=== PATIENT | male | born 1935 | race Caucasian/White ===

== ENCOUNTER 2022-12-26 19:58 | Outpatient (CLI) | payer MEDICARE, OTHER | END 2022-12-26 23:59 | disposition critical access hospital (66) | LOC: EMS 19:58 | DX: R53.1 Weakness (principal) | CPT/HCPCS: A0425; A0429 ==

== ENCOUNTER 2022-12-26 20:27 | Inpatient (IN) | payer MEDICARE, OTHER ==
--- NOTE | 2022-12-26 20:37 | ED Physician Documentation ---
History of Present Illness - Stated complaint Stated Complaint: FALL - Additonal information Additional information: 87-year-old male who has a past medical history most significant for diabetes, hypertension and glaucoma is brought to the emergency department for evaluation of generalized weakness. Fire medics were called out to the house for a lift assist. Reportedly the patient has been getting progressively weak for the last 2 days and could not walk. He thought that he may fall and he was gently assisted to the ground on the couch. He did not strike his head or lose consciousness. When EMS arrived he had a blood glucose of 324. Patient initially did not want transport to the hospital and therefore they tried to ambulate him into his bedroom but he could not stand or walk and thus he is transported here. Patient is alert very pleasant gentleman. History is somewhat limited due to significant hearing loss. He appears atraumatic with no initial worrisome vital sign abnormalities. non focal neuro exam Review of Systems Unable to obtain: Other (hard of hearing) Constitutional: reports: Reviewed and negative Cardiac: denies: Chest pain / pressure Respiratory: denies: Dyspnea GI: denies: Abdominal Pain : denies: Dysuria Skin: denies: Rash Musculoskeletal: denies: Neck pain Neurologic: reports: Generalized weakness. denies: Focal weakness, Numbness, Difficulty speaking, Near syncope, Syncope, Confused, Headache, Head injury, LOC PD PAST MEDICAL HISTORY - Allergies Allergies/Adverse Reactions: Allergies Allergy/AdvReac Type Severity Reaction Status Date / Time No Known Drug Allergies Allergy Verified 12/26/22 20:37 PD ED PE NORMAL - General General: Alert and oriented X 3, No acute distress, Well developed/nourished - HEENT HEENT: Atraumatic, Moist mucous membranes - Neck Neck: Supple, no meningeal sign, No adenopathy - Cardiac Cardiac: RRR - Respiratory Respiratory: No respiratory distress, Clear bilaterally - Abdomen Abdomen: Normal bowel sounds, Soft, Non tender - Derm Derm: Normal color, Warm and dry - Extremities Extremities: No deformity - Neuro Neuro: Alert and oriented X 3, education research analyst 2-12 intact Eye Opening: Spontaneous Motor: Obeys Commands Verbal: Oriented GCS Score: 15 Results - Vitals Vitals: Vital Signs - 24 hr 12/26/22 20:33 Temperature 36.3 C L Heart Rate 67 Respiratory 16 Rate Blood Pressure 136/70 H O2 Saturation 100 Oxygen O2 Source Room air - EKG (time done) 2051 EKG releavant findings:: EKG personally interpreted by author of this note. Relevant findings are: Rate: Rate (enter#) (68) Rhythm: NSR Ariel: Anterior hemiblock (LAFB) Intervals: Normal [place]. No: Prolonged QT QRS: Poor R wave progression Ischemia: Normal ST segments Compare to prior EKG: Old EKG unavailable Computer interpretation: Agree with computer - Labs Labs: Laboratory Tests 12/26/22 12/26/22 12/26/22 20:34 20:50 20:50 WBC 6.2 RBC 4.18 L Hgb 12.7 L Hct 39.7 L MCV 95.0 H MCH 30.4 MCHC 32.0 RDW 13.2 Plt Count 176 MPV 10.7 Neut # (Auto) 4.8 Lymph # (Auto) 0.6 L [place] # (Auto) 0.9 Eos # (Auto) 0.0 Baso # (Auto) 0.0 Absolute Nucleated RBC 0.00 Nucleated RBC % 0.0 Sodium 134 L Potassium 3.8 Chloride 104 Carbon Dioxide 19 L Anion Gap 11.0 BUN 36 H Creatinine 1.4 H Estimated GFR (MDRD) 48 L Glucose 336 H Calcium 8.6 Phosphorus 2.6 Magnesium 1.5 L Total Bilirubin 0.7 AST 27 ALT 17 Alkaline Phosphatase 71 Total Protein 6.8 Albumin 4.2 Globulin 2.6 Albumin/Globulin Ratio 1.6 Lipase 58 H Urine Color YELLOW Urine Clarity CLEAR Urine pH 5.0 Ur Specific [place] >=1.030 H Urine Protein TRACE Urine Glucose (UA) >=1000 H Urine Ketones 15 H Urine Occult Blood TRACE-INTA Urine Nitrite NEGATIVE Urine Bilirubin NEGATIVE Urine Urobilinogen 0.2 (NORMAL) Ur Leukocyte Esterase NEGATIVE Ur Microscopic Review NOT INDICATED Urine Culture Comments NOT INDICATED Serum Ketones SMALL H PD Medical Decision Making - ED course Complexity details: reviewed results, re-evaluated patient, considered differential, d/w patient, d/w family ED course: 87-year-old male who has past medical history most significant for hypertension, diabetes not on insulin and glaucoma presents emergency department for evaluation of generalized weakness which has been progressive over the last 2 days. He was reportedly at home and had been having increased difficulty walking when he was unable to stay standing he was assisted to the ground. There is no head strike or loss of consciousness. Presentation the emergency department he is alert and very well-appearing. Though EMS had documented he was unable to ambulate when left unattended the patient was able to get out of bed ambulate in the room and urinate in a urinal without any assistance. Subsequently we did obtain labs in the emergency department included CBC chemistry ketones and a UA. Urinalysis was without signs of infection. Hemoglobin showed no leukocytosis mild anemia with hemoglobin of 12.7. Serum chemistry showed a sodium of 134, BUN of 36 and a creatinine of 1.4. He did have small amount of serum ketones and a carbon dioxide of 19. Clinically he likely presents in mild DKA. I did administer 5 units of insulin IV as well as a liter of fluid. But given the age and the worsening weakness feel he would benefit from a short hospitalization for further management of his hyperglycemia and mild dka 2136: I have spoken with Dr. Carrera [facility] hospitalist who has evaluated the chart and will bring the patient in for further evaluation and management of his electrolyte derangement and mild DKA. I have also spoken on the phone with the patient's and informed her of the plan to admit. Patient verbally consents to further admission and management here at [facility]. Departure - Departure Disposition: 66 [facility] DC/Xfer Clinical Impression: Generalized weakness DKA (diabetic ketoacidosis) Qualifiers: Diabetes mellitus type: type 2 Diabetes mellitus complication detail: without coma Qualified Code(s): E11.10 - Type 2 diabetes mellitus with ketoacidosis without coma Condition: Stable
[2022-12-26 20:56] LABS: HCT - HEMATOCRIT 39.7 % (42.0-52.0); HGB - HEMOGLOBIN 12.7 g/dL (14.0-18.0); LYMPHOCYTES # (AUTO) 0.6 10^3/uL (1.5-3.5); LYMPHOCYTES % (AUTO) 8.8 %; MEAN CORPUSCULAR HEMOGLOBIN 30.4 pg (27.0-31.0); MEAN PLATELET VOLUME 10.7 fL (7.4-11.4); MONOCYTES # (AUTO) 0.9 10^3/uL (0.0-1.0); MONOCYTES % (AUTO) 14.3 %; NEUTROPHILS # (AUTO) 4.8 10^3/uL (1.5-6.6); NEUTROPHILS % (AUTO) 76.6 %; PLT - PLATELET COUNT 176 10^3/uL (130-450); RED BLOOD COUNT 4.18 10^6/uL (4.70-6.10); RED CELL DISTRIBUTION WIDTH 13.2 % (12.0-15.0); WHITE BLOOD COUNT 6.2 x10^3/uL (4.8-10.8)
[2022-12-26 21:11] LABS: BILIRUBIN,URINE NEGATIVE (NEGATIVE); GLUCOSE, URINE (UA) >=1000 mg/dL (NEGATIVE); KETONES,URINE (UA) 15 mg/dL (NEGATIVE); LEUKOCYTE ESTERASE, URINE NEGATIVE (NEGATIVE); NITRITE,URINE NEGATIVE (NEGATIVE); OCCULT BLOOD,URINE TRACE-INTA (NEGATIVE); PROTEIN,URINE TRACE mg/dL (NEGATIVE); UROBILINOGEN,URINE 0.2 (NORMAL) E.U./dL (NORMAL)
[2022-12-26 21:12] LABS: CLARITY,URINE CLEAR (CLEAR)
[2022-12-26 21:19] LABS: ALBUMIN 4.2 g/dL (3.2-5.5); ALBUMIN/GLOBULIN RATIO 1.6 (1.0-2.2); ALKALINE PHOSPHATASE 71 IU/L (42-121); ALT ALANINE AMINOTRANSFERASE 17 IU/L (10-60); AST ASPARTATE AMINOTRANSFERASE 27 IU/L (10-42); BILIRUBIN,TOTAL 0.7 mg/dL (0.2-1.0); BUN - BLOOD UREA NITROGEN 36 mg/dL (6-20); CALCIUM 8.6 mg/dL (8.5-10.3); CARBON DIOXIDE - CO2 19 mmol/L (21-32); CHLORIDE 104 mmol/L (101-111); CREATININE 1.4 mg/dL (0.6-1.2); GFR - MDRD 48 (>89); GLUCOSE 336 mg/dL (70-100); LIPASE 58 U/L (22-51); MAGNESIUM 1.5 mg/dL (1.7-2.8); PHOSPHORUS 2.6 mg/dL (2.5-4.6); POTASSIUM 3.8 mmol/L (3.5-5.0); SODIUM 134 mmol/L (135-145); TOTAL PROTEIN 6.8 g/dL (6.7-8.2)
[2022-12-26 21:20] LABS: KETONES, SERUM (ACETEST) SMALL (NEGATIVE)
[2022-12-26] MEDS ORDERED: SODIUM CHLORIDE 0.9% 1,000 ML IV STA (21:21)
[2022-12-26 21:26] LABS: VBG HCO3 19.6 mmol/L (23-28); VBG PCO2 41.9 mmHg (41-51); VBG PH 7.287 (7.31-7.41); VBG PO2 17.2 mmHg (25-47)
[2022-12-26 21:27] LABS: VBG BASE EXCESS -6.7 mmol/L (-2 - +2); VBG OXYGEN SATURATION 27.6 % (60-80); VBG TOTAL CO2 20.8 mmol/L (24-29)
[2022-12-26] MEDS ORDERED: INSULIN REGULAR HUMAN 300 UNIT/3 ML VIAL IVP STA (21:32)
[2022-12-26] MEDS ORDERED: AZITHROMYCIN INJ 500 MG in SODIUM CHLORIDE 0.9% 250 ML IV STA (21:40)
[2022-12-26] MEDS ORDERED: cefTRIAXone 1 GM VIAL IVP STA (21:40)
--- NOTE | 2022-12-26 22:01 | XRAY Report ---
PROCEDURE: Chest 1 View X-Ray INDICATIONS: chest pain TECHNIQUE: One view of the chest was acquired. COMPARISON: None. FINDINGS: Surgical changes and devices: None. Lungs and pleura: There are confluent airspace opacities redemonstrated within the lung bases sugges tive of consolidation. There is a suspected small right pleural effusion. No pneumothorax. Mediastinum: Mediastinal contours appear normal. Heart size is normal. Bones and chest wall: No suspicious bony lesions. Overlying soft tissues appear unremarkable. IMPRESSION: 1. Bibasilar confluent opacities are nonspecific but suggestive of pneumonia. 2. Suspected small right pleural effusion. Reviewed by: Alejandro Menezes MD on 12/26/2022 10:00 PM PDT Approved by: Alejandro Menezes MD on 12/26/2022 10:00 PM PDT Station ID: [id number]
--- NOTE | 2022-12-26 22:12 | HISTORY & PHYSICAL EXAMINATION ---
Chief Complaint - Chief Complaint Chief Complaint: Weakness and fall also uncontrolled blood sugar History of Present Illness - Admitted From Admitted From:: Home - History Obtained From Records Reviewed: Yes History obtained from: ER and Pateint and chart review Exam Limitations: Patient is very hard of hearing - History of Present Illness HPI Comment/Other: 87-year-old male who has a past medical history most significant for diabetes, hypertension and glaucoma is brought to the emergency department for evaluation of generalized weakness. Fire medics were called out to the house for a lift assist. Reportedly the patient has been getting progressively weak for the last 2 days and could not walk. He thought that he may fall and he was gently assisted to the ground on the couch. He did not strike his head or lose consciousness. When EMS arrived he had a blood glucose of 324. Patient initially did not want transport to the hospital and therefore they tried to ambulate him into his bedroom but he could not stand or walk and thus he is transported here. Patient is alert very pleasant gentleman. History is somewhat limited due to significant hearing loss. He appears atraumatic with no initial worrisome vital sign abnormalities. non focal neuro exam Patient seen and examined via televideo cart, was moaning but denies any active pain, his CXR shows right lower lobe pna and hence he ahs been started on empiric abx with first dose bieng in ER also has hx of HTN, glaucoma, mild dehydration and low Mg He takes metformin, lisinopril and finasteride and has 3 eye drops, purple cap, orange cap and one is cold with blue cap History - Past Medical History Cardiovascular: reports: Hypertension Respiratory: reports: Pneumonia HEENT: reports: Glaucoma Meds/Allgy - Allergies Allergies/Adverse Reactions: Allergies Allergy/AdvReac Type Severity Reaction Status Date / Time No Known Drug Allergies Allergy Verified 12/26/22 20:37 Review of Systems - Constitutional Constitutional: reports: Fatigue, Weakness, Poor appetite - Musculoskeletal Musculoskeletal: reports: Muscle aches, Muscle weakness Prior Level of Functionality: Lives at home independent with ADL Exam - Vital Signs Vital Signs: Vital Signs x48h Temp Pulse Resp BP Pulse Ox 12/26/22 20:33 36.3 C L 67 16 136/70 H 100 - Physical Exam General Appearance: positive: No acute distress Eyes Bilateral: positive: Normal inspection, PERRL Neck: positive: Thyroid nml Respiratory: positive: No respiratory distress, Breath sounds nml Cardiovascular: positive: Regular rate & rhythm Abdomen: positive: Non-tender Sepsis Event Note (H) - Evaluation Current Stage of Sepsis: Ruled out Conclusion/Plan - Problem List (1) DKA (diabetic ketoacidosis) Conclusion/Plan: Mild DKA with ketones being positive HcO3 is 19 Blood glucose is 396 I dont belive he needs an insulin drip Will give sub insulin and resome oral meds starting in 24 hors Takes metformin at home will need to confirm dose Patient was notified about teleconsult he knew I am based in [place] and he is in [place] of [place] I had a pleasant visit with the patient Qualifiers: Diabetes mellitus type: type 2 Diabetes mellitus complication detail: without coma Qualified Code(s): E11.10 - Type 2 diabetes mellitus with ketoacidosis without coma (2) Vasomotor nephropathy Conclusion/Plan: Creatinine is 1.4 likely mild dehydration First admit to [facility] Monitor creatinine Avoid nephrotoxins If trends up or does not improve would pursue further work up (3) Glaucoma Conclusion/Plan: Try to ask pharamcy if they can assist us with color cap or call in am and get the name of his drops and if we have on formulary to initiate Qualifiers: Glaucoma type: unspecified Laterality: bilateral Qualified Code(s): H40.9 - Unspecified glaucoma (4) Dehydration Conclusion/Plan: NS @ 100 cc /hr x 15 hours Encourage opo intake (5) Hypomagnesemia Conclusion/Plan: Replace Mg and continue to monitor (6) CAP (community acquired pneumonia) Conclusion/Plan: Incidental findings on CXY no associated symptoms Due to his age, underlying hx of DM, mild leukoctosis would treat empiracally for 5-7 days Check sputum culture and repeat CXTR in 48 hours Could also be atelactasis althougg he is speking with me comfortably and his sats are good on room air Qualifiers: Laterality: right Lung location: lower lobe of lung Qualified Code(s): J18.9 - Pneumonia, unspecified organism (7) HTN (hypertension) Conclusion/Plan: Continue Lisinopril once creatinine improves will need to confirm dose with his Whole hx was obtained with the assisstance of our very nice nurse Sravani who was very isntrumental in history as pateint is very hard of hearing Patient worked in [employer] in his younger days [facility] directive and patient clearly mentioned couple of times he has lived a good life and is DNR/DNI (8) Generalized weakness Conclusion/Plan: Supportive care will have him work with PT in am (9) Abnormal EKG Conclusion/Plan: SR with LAFB poor R wave progression no acute current of injury appreciated - Lab Results Fish Bones: 12/26/22 20:50 12/26/22 20:50 - Diagnostic Imaging Results Diagnostic Imaging Results: positive: Prelim report reviewed - EKG Results EKG Interpreted Independently: Yes EKG Comparison: No prior EKG EKG Findings: Agree with CECI MACHUCA
[2022-12-26] MEDS ORDERED: ACETAMINOPHEN 325 MG TABLET PO PRN (22:37)
[2022-12-26] MEDS ORDERED: SODIUM CHLORIDE FLUSH 0.9% 10 ML SYRINGE IVP PRN (22:37)
[2022-12-26] MEDS ORDERED: HYDROcod/ACETAM 5/325 MG TABLET PO PRN (22:37)
[2022-12-26] MEDS ORDERED: ONDANSETRON 4 MG/2 ML VIAL IVP PRN (22:37)
[2022-12-26] MEDS ORDERED: ZOLPIDEM 5 MG TABLET PO PRN (22:37)
[2022-12-26] MEDS ORDERED: MORPHINE 2 MG/ML CARPUJECT IVP PRN (22:37)
[2022-12-26] MEDS ORDERED: MAGNESIUM SULFATE 3 GM in SODIUM CHLORIDE 0.9% 100 ML IV ONE (22:49)
[2022-12-26] MEDS ORDERED: INSULIN GLARGINE-YFGN 300 UNIT/3 ML PEN SUBQ SCH (23:00)
[2022-12-26] MEDS ORDERED: MAGNESIUM SULFATE 1 GM/2 ML VIAL ONE (23:47)
[2022-12-26] MEDS: SODIUM CHLORIDE 0.9% 1,500 ML IV SCH (23:51)
[2022-12-26] MEDS: ATORVASTATIN 40 MG TABLET PO SCH (23:55)
[2022-12-27] MEDS: SODIUM CHLORIDE FLUSH 0.9% 10 ML SYRINGE IVP SCH ×3 (00:42→17:14)
[2022-12-27 05:12] LABS: BASOPHILS % (AUTO) 0.2 %; HCT - HEMATOCRIT 35.7 % (42.0-52.0); HGB - HEMOGLOBIN 11.4 g/dL (14.0-18.0); LYMPHOCYTES # (AUTO) 1.1 10^3/uL (1.5-3.5); LYMPHOCYTES % (AUTO) 22.2 %; MEAN CORPUSCULAR HEMOGLOBIN 30.5 pg (27.0-31.0); MEAN CORPUSCULAR HGB CONC 31.9 g/dL (32.0-36.0); MEAN CORPUSCULAR VOLUME 95.5 fL (80.0-94.0); MEAN PLATELET VOLUME 11.4 fL (7.4-11.4); MONOCYTES # (AUTO) 0.7 10^3/uL (0.0-1.0); MONOCYTES % (AUTO) 14.8 %; NEUTROPHILS % (AUTO) 62.6 %; PLT - PLATELET COUNT 172 10^3/uL (130-450); RED BLOOD COUNT 3.74 10^6/uL (4.70-6.10); RED CELL DISTRIBUTION WIDTH 13.4 % (12.0-15.0); WHITE BLOOD COUNT 4.7 x10^3/uL (4.8-10.8)
[2022-12-27 05:25] LABS: ALBUMIN 3.4 g/dL (3.2-5.5); ALBUMIN/GLOBULIN RATIO 1.5 (1.0-2.2); ALKALINE PHOSPHATASE 62 IU/L (42-121); ALT ALANINE AMINOTRANSFERASE 11 IU/L (10-60); AST ASPARTATE AMINOTRANSFERASE 25 IU/L (10-42); BILIRUBIN,TOTAL 0.3 mg/dL (0.2-1.0); BUN - BLOOD UREA NITROGEN 29 mg/dL (6-20); CALCIUM 8.2 mg/dL (8.5-10.3); CARBON DIOXIDE - CO2 22 mmol/L (21-32); CHLORIDE 110 mmol/L (101-111); CHOL/HDL RATIO 3.9 (<5.0); CHOLESTEROL 130 mg/dL; CREATININE 1.3 mg/dL (0.6-1.3); GFR - MDRD 52 (>89); GLUCOSE 205 mg/dL (74-104); HDL CHOLESTEROL 33 mg/dL; LDL CHOLESTEROL,CALCULATED 79 mg/dL; LDL/HDL RATIO 2.4 (<3.6); POTASSIUM 3.4 mmol/L (3.5-4.5); SODIUM 137 mmol/L (135-145); TOTAL PROTEIN 5.7 g/dL (6.4-8.9); TRIGLYCERIDES 89 mg/dL (48-352); VLDL CHOLESTEROL 18 mg/dL
[2022-12-27 07:50] LABS: KETONES, SERUM (ACETEST) NEGATIVE (NEGATIVE)
[2022-12-27] MEDS: INSULIN LISPRO 300 UNIT/3 ML PEN SUBQ SCH ×4 (09:17→21:02)
[2022-12-27 10:06] LABS: ESTIMATED AVERAGE GLUCOSE 289 mg/dL (70-100); HEMOGLOBIN A1c% 11.7 % (4.27-6.07)
--- NOTE | 2022-12-27 11:46 | PHARMACY PROGRESS NOTE ---
- Best Possible Medication History Admit Date and Time: 12/26/22 9045 Processed by: Pharmacy Medication History completed: Yes Patient Interview: Completed Secondary Source(s): Pharmacy records, Insurance records As the person ultimately responsible for medication therapy, providers are able to order a medication from an existing home medication list in [facility] via the "Reconcile Routine" prior to Confirmation of that medication by respiratory support technician. Such practice is discouraged except when the physician, in their clinical judgment, deems that a medical need exists for a medication without regard to previous use.
[2022-12-27] MEDS: SODIUM CHLORIDE 0.9% 1,500 ML IV SCH (12:45)
[2022-12-27] MEDS ORDERED: FINASTERIDE 5 MG TABLET PO SCH (13:00)
[2022-12-27] MEDS: BRIMONIDINE 0.2% OPHTH DROPS 5 ML EACHEYE SCH ×2 (14:23→20:59)
[2022-12-27] MEDS: DORZOLAMIDE 2% OPHTH DROPS EACHEYE SCH ×2 (14:23→21:01)
--- NOTE | 2022-12-27 15:48 | PROVIDER PROGRESS NOTE ---
Assessment/Plan - Problem List (1) Hypotension Assessment/Plan: The patient called for lift assist at home and was too weak to stand, his blood pressure was soft on presentation. Despite being on IV NS since admission and all blood pressure meds on hold, he is still hypotensive with a systolic BP of 90. He is not septic however, no tachycardia, no fever or elevated lactic acid. Etiology appears to be deh ydration and current infection. I ordered an EKG because of the hypotension. I interpreted it myself. The EKG shows sinus bradycardia, rate 53, LAFB, lateral T wave flattening. There is no prior EKG available for comparison. Plan: Continue with IV fluids Continue treating the infection Hold any BP meds We will check orthostatic vital signs when he becomes ambulatory (2) DKA (diabetic ketoacidosis) Conclusion/Plan: RESOLVED He presented wit mild DKA with ketones being positive Blood glucose is 396 The telemedicine doctor gave him IV insulin, no insulin drip. This morning I reordered ketones and they have turned negative Plan: We will order fingerstick checks, sliding scale insulin Check A1c he takes metformin at home will need to confirm dose, and will not resume in case he needs contrast imaging Qualifiers: Diabetes mellitus type: type 2 Diabetes mellitus complication detail: without coma Qualified Code(s): E11.10 - Type 2 diabetes mellitus with ketoacidosis without coma (3) Fall at home Conclusion/Plan: He was very likely orthostatic. Also probably weak from this infection and the DKA Plan: Continue with IV fluids We will order orthostatic vital sign checks PT and OT evaluation (4) Dehydration Conclusion/Plan: Plan: NS iv hydration to continue Encourage po intake (5) Hypomagnesemia Conclusion/Plan: Plan: Replace Mg and continue to monitor (6) CAP (community acquired pneumonia) Conclusion/Plan: Incidental findings on CXR. \This may be the cause for the recent DKA and overall weakness and hypotension He had no associated symptoms such as cough or SOB. Plan: Due to his age, underlying hx of DM, mild leukoctosis cont to treat empiracally for 5-7 days Await sputum and bld culture results and will repeat CXR at 48 hour Qualifiers: Laterality: right Lung location: lower lobe of lung Qualified Code(s): J18.9 - Pneumonia, unspecified organism (7) Generalized weakness Conclusion/Plan: Plan: NS iv hydration to continue Treat the underlying pneumonia Continue to treat his dehydration and hypotension PT and OT evaluation (8) Hx HTN (hypertension) Conclusion/Plan: He was on Lisinopril at home Plan: Hold all BP meds while he is hypotensive Continue IV saline hydration (9) Glaucoma Conclusion/Plan: Plan: His med list was reconciled and I will resume his glaucoma eyedrops Qualifiers: Glaucoma type: unspecified Laterality: bilateral Qualified Code(s): H40.9 - Unspecified glaucoma (10) [facility] Conclusion/Plan: Plan: Hearing aides suggested - Current Meds Current Meds: Current Medications Generic Name Dose Route Start Last Admin Trade Name Freq PRN Reason Stop Dose Admin Acetaminophen 650 mg 12/26/22 22:37 12/26/22 23:34 Acetaminophen 325 Mg Tablet PO 650 mg Q4HR PRN Administration Pain 1 to 4, or Fever Atorvastatin Calcium 40 mg 12/26/22 23:00 12/26/22 23:55 Atorvastatin 40 Mg Tablet PO 40 mg HS THUY Administration Brimonidine Tartrate 1 drops 12/27/22 13:00 12/27/22 14:23 Brimonidine 0.2% Ophth Drops 5 Ml EACHEYE 1 drops BID THUY Administration Dorzolamide HCl 1 drops 12/27/22 13:00 12/27/22 14:23 Dorzolamide 2% Ophth Drops EACHEYE 1 drops BID THUY Administration Finasteride 5 mg 12/27/22 13:00 12/27/22 14:20 Finasteride 5 Mg Tablet PO 5 mg Q48H THUY Administration Sodium Chloride 1,500 mls @ 100 mls/hr 12/26/22 23:00 12/27/22 12:45 Normal Saline 0.9% IV 100 mls/hr .Q15H THUY Administration Insulin Glargine-yfgn 10 unit 12/26/22 23:00 12/26/22 23:55 Insulin Glargine-Yfgn 300 Unit/3 Ml Pen SUBQ 12/27/22 22:59 10 unit ONCE THUY Administration Insulin Human Lispro 1 - 5 unit 12/27/22 12:00 12/27/22 11:45 Insulin Lispro 300 Unit/3 Ml Pen SUBQ 3 unit 0800,1200,1700,2100 THUY Administration Protocol Sodium Chloride 10 ml 12/27/22 01:00 08/18/23 09:18 Sodium Chloride Flush 0.9% 10 Ml Syringe IVP Not Given 0100,0900,1700 THUY - Lab Result Fish Bone Diagrams: 12/27/22 04:33 12/27/22 04:33 - EKG Results EKG Interpreted Independently: Yes EKG Comparison: Old EKG unavailable EKG Findings: Sinus bradycardia, rate 53, LAFB, lateral T wave flattening. There is no prior EKG available for comparison. - Additional Planning My Orders: My Active Orders 12/27/22 Evaluate and Treat OT [OT] Routine 12/27/22 07:35 Orthostatic [Vital Signs - Orthostatic] [RC] QSHIFT Telemetry (24 Hour) [RC] Q4HR 12/27/22 08:45 Blood Glucose Checks - Eating [RC] 0800,1200,1700,2100 Initiate Hypoglycemia Protocol [RC] .protocol 12/27/22 12:00 Insulin Lispro [Humalog Kwikpen U-100] 1 - 5 unit SUBQ 0800,1200,1700,2100 12/27/22 13:00 Brimonidine 0.2% Ophth Drops [Alphagan P 0.2% Ophth Drops] 1 drops EACHEYE BID Dorzolamide 2% Ophth Drops [Trusopt 2% Ophth Drops] 1 drops EACHEYE BID Finasteride [Proscar] 5 mg PO Q48H 12/27/22 21:00 Latanoprost 0.005% Ophth Drops [Xalatan Ophth Drops] 1 drops EACHEYE QPM 12/27/22 22:44 lisinopriL [Zestril] 5 mg PO DAILY 12/28/22 09:00 Ascorbic Acid [Vitamin C] 500 mg PO DAILY Subjective - Subjective Patient Reports: Fatigue (Napping in his chair, napping in his bed mostly today) Objective Vital Signs: Vital Signs - 24 hr 12/26/22 12/26/22 12/27/22 20:33 23:15 04:33 Temperature 36.3 C L 36.6 C 36.6 C Heart Rate 67 Heart Rate [ 69 53 L Brachial] Respiratory 16 18 18 Rate Blood Pressure 136/70 H Blood Pressure 92/60 [Left Brachial artery] Blood Pressure 114/65 [Right Brachial artery] O2 Saturation 100 97 96 12/27/22 12/27/22 08:35 11:19 Temperature 36.6 C 36.6 C Heart Rate Heart Rate [ 55 L 53 L Brachial] Respiratory 18 18 Rate Blood Pressure Blood Pressure 97/55 L 113/53 L [Left Brachial artery] Blood Pressure [Right Brachial artery] O2 Saturation 95 96 Oxygen O2 Source Room air I&O (Last 24 Hrs): Intake and Output Totals x24h 12/25/22 12/26/22 12/27/22 23:59 23:59 23:59 Intake Total 1000 1936 Output Total 100 900 Balance 900 1036 General: No acute distress, Other (Appears fatigued. Is lethargic.) HEENT: Mucous membr. moist/pink Neck: Supple Neuro: Alert, Non Focal, Other (Movements are slow.) Cardiovascular: No murmurs Respiratory: No respiratory distress Abdomen: Soft Extremities: No clubbing, No edema, No tenderness/swelling - Results Results: Laboratory Results WBC 4.7 x10^3/uL (4.8-10.8) L 12/27/22 04:33 RBC 3.74 10^6/uL (4.70-6.10) L 12/27/22 04:33 Hgb 11.4 g/dL (14.0-18.0) L 12/27/22 04:33 Hct 35.7 % (42.0-52.0) L 12/27/22 04:33 MCV 95.5 fL (80.0-94.0) H 12/27/22 04:33 MCH 30.5 pg (27.0-31.0) 12/27/22 04:33 MCHC 31.9 g/dL (32.0-36.0) L 12/27/22 04:33 RDW 13.4 % (12.0-15.0) 12/27/22 04:33 Plt Count 172 10^3/uL (130-450) 12/27/22 04:33 MPV 11.4 fL (7.4-11.4) 12/27/22 04:33 Neut # (Auto) 3.0 10^3/uL (1.5-6.6) 12/27/22 04:33 Lymph # (Auto) 1.1 10^3/uL (1.5-3.5) L 12/27/22 04:33 [place] # (Auto) 0.7 10^3/uL (0.0-1.0) 12/27/22 04:33 Eos # (Auto) 0.0 10^3/uL (0.0-0.7) 12/27/22 04:33 Baso # (Auto) 0.0 10^3/uL (0.0-0.1) 12/27/22 04:33 Absolute Nucleated RBC 0.00 x10^3/uL 12/27/22 04:33 Nucleated RBC % 0.0 /100WBC 12/27/22 04:33 VBG pH 7.287 (7.31-7.41) L 12/26/22 20:50 VBG pCO2 41.9 mmHg (41-51) 12/26/22 20:50 VBG pO2 17.2 mmHg (25-47) L 12/26/22 20:50 VBG HCO3 19.6 mmol/L (23-28) L 12/26/22 20:50 VBG Total CO2 20.8 mmol/L (24-29) L 12/26/22 20:50 VBG O2 Saturation 27.6 % (60-80) L 12/26/22 20:50 VBG Base Excess -6.7 mmol/L (-2 - +2) L 12/26/22 20:50 Sodium 137 mmol/L (135-145) 12/27/22 04:33 Potassium 3.4 mmol/L (3.5-4.5) L 12/27/22 04:33 Chloride 110 mmol/L (101-111) 12/27/22 04:33 Carbon Dioxide 22 mmol/L (21-32) 12/27/22 04:33 Anion Gap 5.0 (6-13) L 12/27/22 04:33 BUN 29 mg/dL (6-20) H 12/27/22 04:33 Creatinine 1.3 mg/dL (0.6-1.3) 12/27/22 04:33 Estimated GFR (MDRD) 52 (>89) L 12/27/22 04:33 Glucose 205 mg/dL (74-104) H 12/27/22 04:33 POC Whole Bld Glucose 243 mg/dL (70 - 100) H 12/27/22 11:18 Estimat Average Glucose 289 mg/dL (70-100) H 12/27/22 04:33 Hemoglobin A1c % 11.7 % (4.27-6.07) H 12/27/22 04:33 Calcium 8.2 mg/dL (8.5-10.3) L 12/27/22 04:33 Phosphorus 2.6 mg/dL (2.5-4.6) 12/26/22 20:50 Magnesium 2.0 mg/dL (1.7-2.3) 12/27/22 04:33 Total Bilirubin 0.3 mg/dL (0.2-1.0) 12/27/22 04:33 AST 25 IU/L (10-42) 12/27/22 04:33 ALT 11 IU/L (10-60) 12/27/22 04:33 Alkaline Phosphatase 62 IU/L (42-121) 12/27/22 04:33 Total Protein 5.7 g/dL (6.4-8.9) L 12/27/22 04:33 Albumin 3.4 g/dL (3.2-5.5) 12/27/22 04:33 Globulin 2.3 g/dL (2.1-4.2) 12/27/22 04:33 Albumin/Globulin Ratio 1.5 (1.0-2.2) 12/27/22 04:33 Triglycerides 89 mg/dL (48-352) 12/27/22 04:33 Cholesterol 130 mg/dL (-200) 12/27/22 04:33 LDL Cholesterol, Calc 79 mg/dL (-129) 12/27/22 04:33 VLDL Cholesterol 18 mg/dL 12/27/22 04:33 HDL Cholesterol 33 mg/dL (60-) L 12/27/22 04:33 LDL/HDL Ratio 2.4 (<3.6) 12/27/22 04:33 Cholesterol/HDL Ratio 3.9 (<5.0) 12/27/22 04:33 Lipase 58 U/L (22-51) H 12/26/22 20:50 Vitamin B12 117 pg/mL (180-914) L 12/26/22 20:50 TSH 0.32 uIU/mL (0.34-5.60) L 12/27/22 04:33 Free T4 Direct 0.64 ng/dL (0.58-1.64) 12/27/22 04:33 Urine Color YELLOW 12/26/22 20:34 Urine Clarity CLEAR (CLEAR) 12/26/22 20:34 Urine pH 5.0 PH (5.0-7.5) 12/26/22 20:34 Ur Specific [place] >=1.030 (1.002-1.030) H 12/26/22 20:34 Urine Protein TRACE mg/dL (NEGATIVE) 12/26/22 20:34 Urine Glucose (UA) >=1000 mg/dL (NEGATIVE) H 12/26/22 20:34 Urine Ketones 15 mg/dL (NEGATIVE) H 12/26/22 20:34 Urine Occult Blood TRACE-INTA (NEGATIVE) 12/26/22 20:34 Urine Nitrite NEGATIVE (NEGATIVE) 12/26/22 20:34 Urine Bilirubin NEGATIVE (NEGATIVE) 12/26/22 20:34 Urine Urobilinogen 0.2 (NORMAL) E.U./dL (NORMAL) 12/26/22 20:34 Ur Leukocyte Esterase NEGATIVE (NEGATIVE) 12/26/22 20:34 Ur Microscopic Review NOT INDICATED 12/26/22 20:34 Urine Culture Comments NOT INDICATED 12/26/22 20:34 Serum Ketones NEGATIVE (NEGATIVE) 12/27/22 07:47 Sepsis Event Note (H) - Evaluation Current Stage of Sepsis: Ruled out
[2022-12-27] MEDS ORDERED: INSULIN LISPRO 300 UNIT/3 ML PEN SUBQ SCH (17:00)
[2022-12-27] MEDS: ATORVASTATIN 40 MG TABLET PO SCH (20:58)
[2022-12-27] MEDS: cefTRIAXone 1 GM in SODIUM CHLORIDE 0.9% MINIBAG 100 ML IV SCH (20:59)
[2022-12-27] MEDS: LATANOPROST 0.005% OPHTH DROPS EACHEYE SCH (21:08)
[2022-12-27] MEDS: AZITHROMYCIN INJ 500 MG in SODIUM CHLORIDE 0.9% 250 ML IV SCH (21:40)
[2022-12-27] MEDS ORDERED: lisinopriL 5 MG TABLET PO SCH ×3 (22:44)
[2022-12-28] MEDS: SODIUM CHLORIDE FLUSH 0.9% 10 ML SYRINGE IVP SCH ×3 (00:41→16:42)
[2022-12-28] MEDS: SODIUM CHLORIDE 0.9% 1,500 ML IV SCH (00:41)
[2022-12-28 05:43] LABS: BASOPHILS % (AUTO) 0.2 %; EOSINOPHILS % (AUTO) 0.2 %; HCT - HEMATOCRIT 34.7 % (42.0-52.0); HGB - HEMOGLOBIN 11.1 g/dL (14.0-18.0); LYMPHOCYTES # (AUTO) 1.2 10^3/uL (1.5-3.5); LYMPHOCYTES % (AUTO) 25.3 %; MEAN CORPUSCULAR HEMOGLOBIN 30.6 pg (27.0-31.0); MEAN CORPUSCULAR VOLUME 95.6 fL (80.0-94.0); MEAN PLATELET VOLUME 10.8 fL (7.4-11.4); MONOCYTES # (AUTO) 0.7 10^3/uL (0.0-1.0); MONOCYTES % (AUTO) 14.6 %; NEUTROPHILS # (AUTO) 2.7 10^3/uL (1.5-6.6); NEUTROPHILS % (AUTO) 59.7 %; PLT - PLATELET COUNT 154 10^3/uL (130-450); RED BLOOD COUNT 3.63 10^6/uL (4.70-6.10); RED CELL DISTRIBUTION WIDTH 13.5 % (12.0-15.0); WHITE BLOOD COUNT 4.6 x10^3/uL (4.8-10.8)
[2022-12-28 06:05] LABS: ALBUMIN 3.2 g/dL (3.2-5.5); ALBUMIN/GLOBULIN RATIO 1.6 (1.0-2.2); BILIRUBIN,TOTAL 0.3 mg/dL (0.2-1.0); CALCIUM 8.2 mg/dL (8.5-10.3); MAGNESIUM 1.5 mg/dL (1.7-2.3); POTASSIUM 3.9 mmol/L (3.5-4.5); TOTAL PROTEIN 5.2 g/dL (6.4-8.9)
[2022-12-28] MEDS: INSULIN LISPRO 300 UNIT/3 ML PEN SUBQ SCH ×4 (08:05→20:56)
[2022-12-28] MEDS: BRIMONIDINE 0.2% OPHTH DROPS 5 ML EACHEYE SCH ×2 (08:19→20:48)
[2022-12-28] MEDS: DORZOLAMIDE 2% OPHTH DROPS EACHEYE SCH ×2 (08:19→20:48)
[2022-12-28] MEDS ORDERED: SODIUM CHLORIDE 0.9% 1,000 ML IV SCH (08:43)
[2022-12-28] MEDS ORDERED: lisinopriL 5 MG TABLET PO SCH ×2 (09:00→17:29)
[2022-12-28] MEDS ORDERED: ASCORBIC ACID 500 MG TABLET PO SCH (09:00)
[2022-12-28] MEDS ORDERED: LIDOCAINE PATCH 5% TOP SCH (09:00)
[2022-12-28] MEDS ORDERED: MAGNESIUM SULFATE 2 GRAM 2 GM/50 ML BAG IV ONE (10:53)
[2022-12-28 12:13] LABS: B. PARAPERTUSSIS- RESP PCR PAN NOT DETECTED; B. PERTUSSIS- RESP PCR PANEL NOT DETECTED; C. PNEUMONIAE- RESP PCR PANEL NOT DETECTED; CORONAVIRUS 229E-RESP PCR NOT DETECTED; CORONAVIRUS HKU1-RESP PCR NOT DETECTED; CORONAVIRUS NL63-RESP PCR NOT DETECTED; CORONAVIRUS OC43-RESP PCR NOT DETECTED; HUMAN METAPNEUMOVIRUS NOT DETECTED; INFLUENZA A- RESP PCR PANEL NOT DETECTED; INFLUENZA B - RESP PCR PANEL NOT DETECTED; M. PNEUMONIAE- RESP PCR PANEL NOT DETECTED; PARAINFLUENZA VIRUS 1 NOT DETECTED; PARAINFLUENZA VIRUS 2 NOT DETECTED; PARAINFLUENZA VIRUS 3 NOT DETECTED; PARAINFLUENZA VIRUS 4 NOT DETECTED; RHINOVIRUS/ENTEROVIRUS NOT DETECTED; RSV- RESP PCR PANEL NOT DETECTED; SARS-CoV-2 -RESP PCR PANEL DETECTED
[2022-12-28 15:43] LABS: CALCIUM, IONIZED 1.11 mmol/L (1.15-1.33); VBG PH 7.344 (7.31-7.41)
[2022-12-28 15:53] LABS: MAGNESIUM 1.8 mg/dL (1.7-2.3); PHOSPHORUS 2.2 mg/dL (2.5-5.0); POTASSIUM 3.8 mmol/L (3.5-4.5)
[2022-12-28] MEDS ORDERED: MAGNESIUM OXIDE 400 MG TABLET PO ONE (15:59)
[2022-12-28] MEDS ORDERED: POTASSIUM CHLORIDE 20 MEQ TABLET PO ONE (15:59)
[2022-12-28] MEDS: CALCIUM CARBONATE CHEW 500 MG TABLET PO SCH ×2 (16:29→20:47)
[2022-12-28] MEDS: NEUTRA-PHOS 250 MG TABLET PO SCH ×2 (16:29→18:42)
--- NOTE | 2022-12-28 16:39 | PROVIDER PROGRESS NOTE ---
Subjective - Subjective Pt reports feeling: No change (He is feeling stronger than on the first day of admission but overall still does not feel well) Objective - Vital Signs/Intake & Output Reviewed Vital Signs: Yes Vital Signs: Vital Signs Temp Pulse Resp BP Pulse Ox 12/28/22 16:00 55 L 16 139/59 H 100 12/28/22 14:16 36.8 C 64 24 122/71 100 12/28/22 12:58 37.1 C 57 L 16 113/63 96 Intake & Output: Intake & Output 12/25/22 12/26/22 12/27/22 12/28/22 23:59 23:59 23:59 23:59 Intake Total 1000 3109.333 781.667 Output Total 100 1250 700 Balance 900 1859.333 81.667 - Objective General Appearance: positive: No acute distress, Alert, Other (TETLIN, only hears f rom L ear) Eyes Bilateral: positive: Normal inspection, EOMI ENT: positive: ENT inspection nml, No signs of dehydration Neck: positive: Nml inspection, No JVD Respiratory: positive: No respiratory distress Cardiovascular: positive: Bradycardia Abdomen: positive: Non-tender, No distention Skin: positive: Warm, Dry, Pallor, Other ((+) skin tenting) Extremities: positive: Non-tender, No pedal edema Neurologic/Psychiatric: positive: Oriented x3, Other (Poor historian, very hard of hearing, only hears from left ear) - Lab Results Fish Bones: 12/28/22 05:36 12/28/22 15:37 Other Labs: Lab Results x24hrs 12/28/22 12/28/22 12/28/22 Range/Units 15:37 15:37 11:24 WBC (4.8-10.8) x10^3/uL RBC (4.70-6.10) 10^6/uL Hgb (14.0-18.0) g/dL Hct (42.0-52.0) % MCV (80.0-94.0) fL MCH (27.0-31.0) pg MCHC (32.0-36.0) g/dL RDW (12.0-15.0) % Plt Count (130-450) 10^3/uL MPV (7.4-11.4) fL Neut # (Auto) (1.5-6.6) 10^3/uL Lymph # (Auto) (1.5-3.5) 10^3/uL Medina # (Auto) (0.0-1.0) 10^3/uL Eos # (Auto) (0.0-0.7) 10^3/uL Baso # (Auto) (0.0-0.1) 10^3/uL Absolute Nucleated RBC x10^3/uL Nucleated RBC % /100WBC VBG pH 7.344 (7.31-7.41) Ionized Calcium 1.11 L (1.15-1.33) mmol/L Sodium (135-145) mmol/L Potassium 3.8 (3.5-4.5) mmol/L Chloride (101-111) mmol/L Carbon Dioxide (21-32) mmol/L Anion Gap (6-13) BUN (6-20) mg/dL Creatinine (0.6-1.3) mg/dL Estimated GFR (MDRD) (>89) Glucose (74-104) mg/dL POC Whole Bld Glucose 259 H (70 - 100) mg/dL Calcium (8.5-10.3) mg/dL Phosphorus 2.2 L (2.5-5.0) mg/dL Magnesium 1.8 (1.7-2.3) mg/dL Total Bilirubin (0.2-1.0) mg/dL AST (10-42) IU/L ALT (10-60) IU/L Alkaline Phosphatase (42-121) IU/L Troponin I High Sens (2.3-19.7) ng/L Total Protein (6.4-8.9) g/dL Albumin (3.2-5.5) g/dL Globulin (2.1-4.2) g/dL Albumin/Globulin Ratio (1.0-2.2) Nasal Adenovirus (PCR) Nasal B. parapertussis DNA (PCR) Nasal Coronavir 229E PCR Nasal Coronavir HKU1 PCR Nasal Coronavir NL63 PCR Nasal Coronavir OC43 PCR Nasal Enterovir/Rhinovir PCR Nasal Influenza B PCR Nasal Influenza A PCR Nasal Parainfluen 1 PCR Nasal Parainfluen 2 PCR Nasal Parainfluen 3 PCR Nasal Parainfluen 4 PCR Nasal RSV (PCR) Nasal B.pertussis DNA PCR Nasal C.pneumoniae (PCR) Caleb Human Metapneumo PCR Nasal M.pneumoniae (PCR) Nasal SARS-CoV-2 (PCR) 12/28/22 12/28/22 12/28/22 Range/Units 11:21 11:05 07:20 WBC (4.8-10.8) x10^3/uL RBC (4.70-6.10) 10^6/uL Hgb (14.0-18.0) g/dL Hct (42.0-52.0) % MCV (80.0-94.0) fL MCH (27.0-31.0) pg MCHC (32.0-36.0) g/dL RDW (12.0-15.0) % Plt Count (130-450) 10^3/uL MPV (7.4-11.4) fL Neut # (Auto) (1.5-6.6) 10^3/uL Lymph # (Auto) (1.5-3.5) 10^3/uL Medina # (Auto) (0.0-1.0) 10^3/uL Eos # (Auto) (0.0-0.7) 10^3/uL Baso # (Auto) (0.0-0.1) 10^3/uL Absolute Nucleated RBC x10^3/uL Nucleated RBC % /100WBC VBG pH (7.31-7.41) Ionized Calcium (1.15-1.33) mmol/L Sodium (135-145) mmol/L Potassium (3.5-4.5) mmol/L Chloride (101-111) mmol/L Carbon Dioxide (21-32) mmol/L Anion Gap (6-13) BUN (6-20) mg/dL Creatinine (0.6-1.3) mg/dL Estimated GFR (MDRD) (>89) Glucose (74-104) mg/dL POC Whole Bld Glucose 154 H (70 - 100) mg/dL Calcium (8.5-10.3) mg/dL Phosphorus (2.5-5.0) mg/dL Magnesium (1.7-2.3) mg/dL Total Bilirubin (0.2-1.0) mg/dL AST (10-42) IU/L ALT (10-60) IU/L Alkaline Phosphatase (42-121) IU/L Troponin I High Sens 457.1 H* (2.3-19.7) ng/L Total Protein (6.4-8.9) g/dL Albumin (3.2-5.5) g/dL Globulin (2.1-4.2) g/dL Albumin/Globulin Ratio (1.0-2.2) Nasal Adenovirus (PCR) NOT DETECTED Nasal B. parapertussis DNA (PCR) NOT DETECTED Nasal Coronavir 229E PCR NOT DETECTED Nasal Coronavir HKU1 PCR NOT DETECTED Nasal Coronavir NL63 PCR NOT DETECTED Nasal Coronavir OC43 PCR NOT DETECTED Nasal Enterovir/Rhinovir PCR NOT DETECTED Nasal Influenza B PCR NOT DETECTED Nasal Influenza A PCR NOT DETECTED Nasal Parainfluen 1 PCR NOT DETECTED Nasal Parainfluen 2 PCR NOT DETECTED Nasal Parainfluen 3 PCR NOT DETECTED Nasal Parainfluen 4 PCR NOT DETECTED Nasal RSV (PCR) NOT DETECTED Nasal B.pertussis DNA PCR NOT DETECTED Nasal C.pneumoniae (PCR) NOT DETECTED Caleb Human Metapneumo PCR NOT DETECTED Nasal M.pneumoniae (PCR) NOT DETECTED Nasal SARS-CoV-2 (PCR) DETECTED A 12/28/22 12/28/22 12/28/22 Range/Units 05:36 05:36 05:36 WBC 4.6 L (4.8-10.8) x10^3/uL RBC 3.63 L (4.70-6.10) 10^6/uL Hgb 11.1 L (14.0-18.0) g/dL Hct 34.7 L (42.0-52.0) % MCV 95.6 H (80.0-94.0) fL MCH 30.6 (27.0-31.0) pg MCHC 32.0 (32.0-36.0) g/dL RDW 13.5 (12.0-15.0) % Plt Count 154 (130-450) 10^3/uL MPV 10.8 (7.4-11.4) fL Neut # (Auto) 2.7 (1.5-6.6) 10^3/uL Lymph # (Auto) 1.2 L (1.5-3.5) 10^3/uL Medina # (Auto) 0.7 (0.0-1.0) 10^3/uL Eos # (Auto) 0.0 (0.0-0.7) 10^3/uL Baso # (Auto) 0.0 (0.0-0.1) 10^3/uL Absolute Nucleated RBC 0.00 x10^3/uL Nucleated RBC % 0.0 /100WBC VBG pH (7.31-7.41) Ionized Calcium (1.15-1.33) mmol/L Sodium 137 (135-145) mmol/L Potassium 3.9 (3.5-4.5) mmol/L Chloride 111 (101-111) mmol/L Carbon Dioxide 24 (21-32) mmol/L Anion Gap 2.0 L (6-13) BUN 20 (6-20) mg/dL Creatinine 1.0 (0.6-1.3) mg/dL Estimated GFR (MDRD) 71 L (>89) Glucose 162 H (74-104) mg/dL POC Whole Bld Glucose (70 - 100) mg/dL Calcium 8.2 L (8.5-10.3) mg/dL Phosphorus (2.5-5.0) mg/dL Magnesium 1.5 L (1.7-2.3) mg/dL Total Bilirubin 0.3 (0.2-1.0) mg/dL AST 30 (10-42) IU/L ALT 14 (10-60) IU/L Alkaline Phosphatase 57 (42-121) IU/L Troponin I High Sens 775.3 H* (2.3-19.7) ng/L Total Protein 5.2 L (6.4-8.9) g/dL Albumin 3.2 (3.2-5.5) g/dL Globulin 2.0 L (2.1-4.2) g/dL Albumin/Globulin Ratio 1.6 (1.0-2.2) Nasal Adenovirus (PCR) Nasal B. parapertussis DNA (PCR) Nasal Coronavir 229E PCR Nasal Coronavir HKU1 PCR Nasal Coronavir NL63 PCR Nasal Coronavir OC43 PCR Nasal Enterovir/Rhinovir PCR Nasal Influenza B PCR Nasal Influenza A PCR Nasal Parainfluen 1 PCR Nasal Parainfluen 2 PCR Nasal Parainfluen 3 PCR Nasal Parainfluen 4 PCR Nasal RSV (PCR) Nasal B.pertussis DNA PCR Nasal C.pneumoniae (PCR) Caleb Human Metapneumo PCR Nasal M.pneumoniae (PCR) Nasal SARS-CoV-2 (PCR) 12/27/22 12/27/22 Range/Units 20:45 16:47 WBC (4.8-10.8) x10^3/uL RBC (4.70-6.10) 10^6/uL Hgb (14.0-18.0) g/dL Hct (42.0-52.0) % MCV (80.0-94.0) fL MCH (27.0-31.0) pg MCHC (32.0-36.0) g/dL RDW (12.0-15.0) % Plt Count (130-450) 10^3/uL MPV (7.4-11.4) fL Neut # (Auto) (1.5-6.6) 10^3/uL Lymph # (Auto) (1.5-3.5) 10^3/uL Medina # (Auto) (0.0-1.0) 10^3/uL Eos # (Auto) (0.0-0.7) 10^3/uL Baso # (Auto) (0.0-0.1) 10^3/uL Absolute Nucleated RBC x10^3/uL Nucleated RBC % /100WBC VBG pH (7.31-7.41) Ionized Calcium (1.15-1.33) mmol/L Sodium (135-145) mmol/L Potassium (3.5-4.5) mmol/L Chloride (101-111) mmol/L Carbon Dioxide (21-32) mmol/L Anion Gap (6-13) BUN (6-20) mg/dL Creatinine (0.6-1.3) mg/dL Estimated GFR (MDRD) (>89) Glucose (74-104) mg/dL POC Whole Bld Glucose 248 H 257 H (70 - 100) mg/dL Calcium (8.5-10.3) mg/dL Phosphorus (2.5-5.0) mg/dL Magnesium (1.7-2.3) mg/dL Total Bilirubin (0.2-1.0) mg/dL AST (10-42) IU/L ALT (10-60) IU/L Alkaline Phosphatase (42-121) IU/L Troponin I High Sens (2.3-19.7) ng/L Total Protein (6.4-8.9) g/dL Albumin (3.2-5.5) g/dL Globulin (2.1-4.2) g/dL Albumin/Globulin Ratio (1.0-2.2) Nasal Adenovirus (PCR) Nasal B. parapertussis DNA (PCR) Nasal Coronavir 229E PCR Nasal Coronavir HKU1 PCR Nasal Coronavir NL63 PCR Nasal Coronavir OC43 PCR Nasal Enterovir/Rhinovir PCR Nasal Influenza B PCR Nasal Influenza A PCR Nasal Parainfluen 1 PCR Nasal Parainfluen 2 PCR Nasal Parainfluen 3 PCR Nasal Parainfluen 4 PCR Nasal RSV (PCR) Nasal B.pertussis DNA PCR Nasal C.pneumoniae (PCR) Caleb Human Metapneumo PCR Nasal M.pneumoniae (PCR) Nasal SARS-CoV-2 (PCR) - Diagnostic Imaging Diagnostic Imaging Results: positive: Final report reviewed - Other Results/Comments Other Results/Comments: I interpreted his EKG personally, EKG today shows sinus rhythm, rate 63, frequent PVCs, T wave flattening in the lateral leads, ST depressions minimally in the lin-septal leads. Since the last EKG, the anterior ST depressions are new. Sepsis Event Note (H) - Evaluation Current Stage of Sepsis: Ruled out Assessment/Plan - Problem List (1) Idioventricular rhythm Impression: His overnight RN printed a rhythm strip that at 0634 the patient was in a sustained idioventricular rhythm at a rate of 60. His BP was 80-90 systolic with this, but he had no complaints. This could be related to ischemia, or from underlying conduction system disease, or possibly a result of (newly diagnosed today) COVID infection (see #2). I reached out and spoke to his daughter Cecy Watson. She is an MD, a Pathologist on the [facility], and the son-in-law is an internal medicine doctor. Today I discussed with the daughter all his findings, after the patient allowed Cecy to be notified. I discussed that he may need a permanent pacemaker and transfer to a hospital where this can be inserted. The patient could not decide. I then called the daughter again to explain to her father what a pacemaker is. The daughter stated that her father would agree to any intervention that is necessary. I ordered an EKG today and interpreted it personally. It shows sinus rhythm, rate 63, frequent PVCs, T wave flattening in the lateral leads, ST depressions minimally in the lin-septal leads. Since the last EKG, the anterior ST depressions are new. Plan: The patient will be transferred to the ICU. Avoid all heart rate slowing meds I will check a set of troponins to see if this ideoventr rhythm is related to cardiac ischemia. I will check a TSH to see if hypothyroidism may be the cause of this rhythm Place external pacing patches on his chest and have the ZOLL pacer outside his room (due to isolation oder, and it is the only Zoll we have), if it is needed immediately to connect to the patches I will reach out to larger hospital centers to have him transferred for higher level of care. (2) COVID-19 Assessment/Plan: This morning, the ED provider, Dr. Berrios, informed me that the patient's is in the ER with a URI and tested positive for COVID. She was discharged with a prescription for Paxlovid. The then came to visit the patient in his room, she was wearing a mask. I then spoke to the daughter Cecy by phone again. Cecy gave me details that the patient's granddaughter, Cecy's daughter, was visiting them a week ago, turned sick, and tested COVID-positive. Therefore, Cecy suspects the granddaughter probably spread the COVID to her grandmother. Therefore the patient was tested with a respiratory PCR today. He is COVID- positive. He was not tested at admission, despite having findings of an infiltrate Plan: He does not have hypoxia to qualify for remdesivir. He does not have a cough to qualify for Paxlovid however I am concerned that the idioventricular rhythm may be a cardiac manifestation of COVID He will be ordered to be in respiratory isolation (3) Acute NSTEMI Assessment/Plan: With the sustained idioventricular rhythm on telemetry, I ordered a check a set of troponins to see if this is related to cardiac ischemia. The first trop was 700, then 400. I ordered an EKG today and interpreted myself. It shows sinus rhythm, rate 63, frequent PVCs, T wave flattening in the lateral leads, ST depressions minimally in the septal leads. Since the last EKG, the anterior ST depressions are new. Plan: Start daily aspirin. Start statin, check lipids and treat per guidelines I will not add Plavix since the patient will need that held for several days and would delay him undergoing an angiogram or to have pacemaker implant I will put the patient on Lovenox at BID therapeutic doses Obtain an Echo (today is Friday and we have no analytical tech here Friday through Friday. (4) Hypotension Assessment/Plan: The patient called for lift assist at home and was too weak to stand, his blood pressure was soft on presentation. Despite being on IV NS since admission and all blood pressure meds on hold, he is still running BP of 90-120. He was not felt to be septic and had no tachycardia, no fever or elevated lactic acid. Etiology appeared to be dehydration. I now suspect his COVID infection caused that dehydration. During idioventricular rhythm his systolic BP was even lower, at 80-90 Plan: Continue with gentle IV fluids Continue empirically treating the PNA Hold any BP meds CRITICAL CARE TIME SPENT: 100 min (on #1 thru #4 above ) (Reviewing rhythm strips, obtaining EKG, reviewing labs, reordering labs, ordering transfer to ICU, changing meds and IVs, evaluating patient and discussing pacemaker, speaking to his daughter, speaking to transfer center, speaking to [employer] on-call at [facility], arranging for transfer w/ COBRA paperwork, when there is an accepting doctor there) (5) Dehydration Conclusion/Plan: IMPROVING Plan: NS iv hydration to continue Encourage po intake (6) Hypomagnesemia Conclusion/Plan: All labs reviewed and magnesium is 1.5 today Plan: Replace Mg and continue to monitor (7) CAP (community acquired pneumonia) Conclusion/Plan: He had no cough, URI or sore throat but had this findings on CXR. He still has no associated symptoms such as cough or SOB. No desaturations Plan: Cont to treat with empiric antibx Today my suspicion is that he has a COVID-pneumonia. He does not qualify for remdesivir since not desaturating. He does not qualify for Paxlovid since he has no symptoms Qualifiers: Laterality: right Lung location: lower lobe of lung Qualified Code(s): J18.9 - Pneumonia, unspecified organism (8) Generalized weakness Conclusion/Plan: I now suspect his worsened weakness was from catching COVID Plan: NS iv hydration to continue Empirically teat the pneumonia Continue to treat his dehydration and hypotension PT and OT evaluation (9) Fall at home Conclusion/Plan: He was very likely orthostatic. Also probably weak from this infection and the DKA Plan: Continue with IV fluids We will order orthostatic vital sign checks PT will be cancelled in light of the ideoventricular rhythm (10) Hx HTN (hypertension) Conclusion/Plan: He was on Lisinopril at home Plan: Hold all BP meds while he is hypotensive Continue IV saline hydration (11) Glaucoma Conclusion/Plan: Plan: His med list was reconciled and I will resume his glaucoma eyedrops Qualifiers: Glaucoma type: unspecified Laterality: bilateral Qualified Code(s): H40.9 - Unspecified glaucoma (12) TETLIN Conclusion/Plan: Today his daughter Cecy told me that he cannot hear at all from the right ear and can only hear from the left Plan: Hearing aides needed if he has some (13) DKA (diabetic ketoacidosis) Conclusion/Plan: RESOLVED He presented wit mild DKA with ketones being positive. Blood glucose was 396 The telemedicine doctor gave him IV insulin, no insulin drip. By the next morning ketones became negative His A1c came back 11.7, indicating poor glu control Plan: Cont a DM diet, fingerstick checks, sliding scale insulin Qualifiers: Diabetes mellitus type: type 2 Diabetes mellitus complication detail: without coma Qualified Code(s): E11.10 - Type 2 diabetes mellitus with ketoacidosis without coma
[2022-12-28] MEDS ORDERED: ASPIRIN CHEW 81 MG TABLET PO STA (17:30)
[2022-12-28] MEDS: ATORVASTATIN 40 MG TABLET PO SCH (20:47)
[2022-12-28] MEDS: cefTRIAXone 1 GM in SODIUM CHLORIDE 0.9% MINIBAG 100 ML IV SCH (20:48)
[2022-12-28] MEDS: AZITHROMYCIN INJ 500 MG in SODIUM CHLORIDE 0.9% 250 ML IV SCH (20:48)
[2022-12-28] MEDS ORDERED: ENOXAPARIN 80 MG/0.8 ML SYRINGE SUBQ SCH (21:00)
[2022-12-28 21:10] VITALS: O2SAT 97
[2022-12-28] MEDS: LATANOPROST 0.005% OPHTH DROPS EACHEYE SCH (21:31)
[2022-12-29 00:11] VITALS: BP 122/60
[2022-12-29] MEDS: SODIUM CHLORIDE FLUSH 0.9% 10 ML SYRINGE IVP SCH (01:53)
[2022-12-29] MEDS ORDERED: ASPIRIN EC 81 MG TABLET PO SCH (09:00)
--- NOTE | 2022-12-29 17:57 | DISCHARGE SUMMARY ---
Discharge Summary Admit Date: 12/26/22 Discharge Date: 12/29/22 Discharging Provider: Dr Carmel Berry Primary Care Provider: Unknown Condition at Discharge: Poor Discharge Disposition: 02 Transfer Acute Care Hosp - [facility] History of Present Illness: 87-year-old male who has a past medical history most significant for diabetes, hypertension and glaucoma is brought to the emergency department for evaluation of generalized weakness. Fire medics were called out to the house for a lift assist. Reportedly the patient has been getting progressively weak for the last 2 days and could not walk. He thought that he may fall and he was gently assisted to the ground on the couch. He did not strike his head or lose consciousness. When EMS arrived he had a blood glucose of 324. Patient initially did not want transport to the hospital and therefore they tried to ambulate him into his bedroom but he could not stand or walk and thus he is transported here. Patient is alert very pleasant gentleman. History is somewhat limited due to significant hearing loss. He appears atraumatic with no initial worrisome vital sign abnormalities and a non focal neuro exam Patient seen and examined via televideo cart, was moaning but denies any active pain, his CXR shows right lower lobe pna and hence he has been started on empiric abx with first dose given in ER. He also has hx of HTN, glaucoma. He has mild dehydration and low Mg, also glu 300 and (+) serum ketones, so in mild DKA. He takes metformin, lisinopril and finasteride and has 3 eye drops, "one with purple cap, orange cap and one is cold in fridge with blue cap". - HOSPITAL COURSE Hospital Course: (1) DKA (diabetic ketoacidosis) E11.10 - Type 2 diabetes mellitus with ketoacidosis without coma He presented wit mild DKA with ketones being positive. Blood glucose was 396. The telemedicine doctor gave him IV insulin, no insulin drip. By the next morning ketones became negative. His A1c came back 11.7, indicating poor glu control. He was on a DM diet, had fingerstick checks, and sliding scale insulin. His Metformin was on hold. (2) Hypotension The patient called for lift assist at home and was too weak to stand, his blood pressure was soft on presentation. Despite being on IV NS since admission and with all blood pressure meds on hold, he was still running BP of 90-120. He was not felt to be septic and had no tachycardia, no fever or elevated lactic acid. Etiology appeared to be dehydration. Later, we suspected his COVID infection caused that dehydration. (3) Dehydration NS iv hydration was ordered and we ecouraged po intake (4) CAP (community acquired pneumonia) He had no cough, URI or sore throat but had an infiltrate on CXR. He was put on empiric iv Ceftriaxone and Azithro. (5) COVID-19 One morning, the ED provider, Dr. Berrios, informed me that the patient's ewas in the ER with a cough and tested positive for COVID. She was discharged with a prescription for Paxlovid. The then came to visit the patient in his room, she was wearing a mask. I then spoke to the daughter Cecy by phone, who gave me details that the patient's granddaughter, Cecy's daughter, was visiting them a week ago, turned sick, and tested COVID-positive. Therefore, Cecy suspected the granddaughter probably spread the COVID to her grandparents. Therefore the patient was tested with a respiratory PCR test that day. He was COVID-positive. He was unfortunately not tested at admission, de spite having an infiltrate. He did not have hypoxia to qualify for Remdesivir or Decadron. He did not have a cough to qualify for Paxlovid. We ordered him to be in respiratory isolation. (6) Idioventricular rhythm At 0634 on 12/28/22, the patient was in a sustained idioventricular rhythm at a rate of 60. His BP was 80-90 systolic with this, but he had no complaints. This could be related to the (newly diagnosed) COVID infection. However, he also had abnormal troponins (see #7), suggesting he had CAD and an ischemic rhythm. The patient was transferred to the ICU, pacing patches were applied, but no pacing was needed while here. I discussed possibly needing a permanent pacemaker and the patient requested I contact his daughter Cecy Watson, an MD, Pathologist. I discussed with her all his findings, and that he may need a permanent pacemaker, and I then reached out for transfer to a hospital with higher level of care. He was accepted in transfer to [facility] in [place]. (7) Acute NSTEMI With the sustained idioventricular rhythm on telemetry, we checked a set of troponins to see if this is related to cardiac ischemia. The first trop was 775, then 457, consistent with the tail-end of an NE. An EKG showed new ST depressi ons minimally in the lin-septal leads. He was put on aspirin, Lovenox BID therapeutic dose and his statin was continued. We had no Heating Engineer to get an Echo. He was accepted for Cardiology consultation, in transfer to the Hospitalist at [facility]. (8) Hypomagnesemia Magnesium was 1.5 and was replaced (9) Generalized weakness I now suspect his worsened weakness was from catching COVID (10) Fall at home He was very likely orthostatic. Also probably weak from this infection and the DKA (11) Hx HTN (hypertension) He was on Lisinopril at home. All BP-lowering meds were on hold here. (12) Glaucoma I ordered all his glaucoma eyedrops (13) [place] He cannot hear at all from the right ear and can only hear partially from the left - ALLERGIES Allergies/Adverse Reactions: Allergies Allergy/AdvReac Type Severity Reaction Status Date / Time No Known Drug Allergies Allergy Verified 12/26/22 20:37 - MEDICATIONS Home Medications: Ambulatory Orders Medication Instructions Recorded Confirmed Ascorbic Acid [Vitamin C] 500 mg PO DAILY 12/27/22 12/27/22 Brimonidine 0.2% Ophth Drops 1 drops EACHEYE BID 12/27/22 12/27/22 [Alphagan P 0.2% Ophth Drops] Dorzolamide 2% Ophth Drops 1 drops EACHEYE BID 12/27/22 12/27/22 [Trusopt 2% Ophth Drops] Finasteride [Proscar] 5 mg PO Q48H 12/27/22 12/27/22 Latanoprost 0.005% Ophth Drops 1 drops EACHEYE QPM 12/27/22 12/27/22 [Xalatan Ophth Drops] Lidocaine [Numbcream] 1 applic TOP DAILY PRN 12/27/22 12/27/22 Metformin HCl [Metformin ER 1,000 mg PO BID 12/27/22 12/27/22 Osmotic] lisinopriL [Zestril] 5 mg PO DAILY 12/27/22 12/27/22 - PHYSICAL EXAM AT DISCHARGE General Appearance: positive: No acute distress, Alert, Other (Tall lanky elderly male) Eyes Bilateral: positive: EOMI ENT: positive: No signs of dehydration, Other ([place]) Neck: positive: Nml inspection, No JVD Respiratory: positive: No respiratory distress, Breath sounds nml Cardiovascular: positive: Regular rate & rhythm, No murmur Abdomen: positive: Non-tender, Nml bowel sounds, No distention Skin: positive: Warm, Dry Extremities: positive: Non-tender, No pedal edema Neurologic/Psychiatric: positive: Oriented x3, Motor nml, Other ([place]) - LABS Result Diagrams: 12/28/22 05:36 12/28/22 15:37 - SEPSIS Current Stage of Sepsis: Ruled out - FOLLOW UP Follow Up: This will be determined after his stay at [facility]. - TIME SPENT Time Spent in Discharge (Minutes): 50
== END 2022-12-29 00:55 | disposition short-term general hospital (02) | DRG 637 ==
LOC: ED 20:27 → MS2 22:37 → ICU 12-28 14:20
PROVIDERS: ADMIT Internal Medicine; ATTEND Internal Medicine
DX: E11.10 Type 2 diabetes mellitus with ketoacidosis without coma (principal); E11.65 Type 2 diabetes mellitus with hyperglycemia; J18.9 Pneumonia, unspecified organism; I21.3 ST elevation (STEMI) myocardial infarction of unspecified site; U07.1 COVID-19; N17.0 Acute kidney failure with tubular necrosis; R26.2 Difficulty in walking, not elsewhere classified; D64.9 Anemia, unspecified; J12.82 Pneumonia due to coronavirus disease 2019; I10 Essential (primary) hypertension; H40.9 Unspecified glaucoma; H91.90 Unspecified hearing loss, unspecified ear; E86.0 Dehydration; Z66 Do not resuscitate; E83.42 Hypomagnesemia; Z79.84 Long term (current) use of oral hypoglycemic drugs; I95.9 Hypotension, unspecified; Z91.81 History of falling; R94.31 Abnormal electrocardiogram [ECG] [EKG]; I44.4 Left anterior fascicular block; R00.1 Bradycardia, unspecified
CPT/HCPCS: 36415; 71045; 80053; 80061; 81003; 82009; 82330; 82607; 82803; 83036; 83690; 83735; 84100; 84132; 84439; 84443; 84484; 85025; 87040; 87150; 87633; 93005; 96361; 96365; 96375; 97161; 97166; 99285; A9270; J1650; J1815; J7040; 81001; 83721; 87086